=== PATIENT | female | born 1965 | race Caucasian/White ===

== ENCOUNTER 2017-02-14 02:54 | Inpatient (IN) ==
[2017-02-13 09:09] LABS: BASO% 1.1 % (0.0-0.8); EOS# 0.36 X1000 (0.0-0.7); HEMATOCRIT 41.8 % (37.0-47.0); HEMOGLOBIN 14.1 g/dL (12.0-16.0); IMM GRAN# 0.04 X1000 (0.0-0.04); IMM GRAN% 0.9 % (0.0-0.5); LYMPH# 1.14 X1000 (1.2-3.4); LYMPH% 25.2 % (20.5-51.1); MANUAL DIFF NEEDED? YES; MCH 30.8 PG (27-31); MCHC 33.7 g/dL (33-37); MCV 91.3 FL (81-99); MONO# 0.36 X1000 (0.11-0.59); MPV 11.5 FL (7.4-10.4); NEUT% 56.8 % (42.2-75.2); PLT 191 X1000 (130-400); RBC 4.58 XMIL (4.2-5.4)
[2017-02-13 09:16] LABS: INR 0.96; PTT 23.6 Seconds (22.0-36.0)
[2017-02-13 09:22] LABS: EOS 4 % (1-10); LYMPHS 31 % (21-51); MONO 6 % (1-9)
[2017-02-13 09:29] LABS: AGAP 11; ALBUMIN 4.1 g/dL (3.5-5.0); ALKALINE PHOSPHATASE 71 U/L (32-104); BUN 20 mg/dL (8-22); CALCIUM 9.7 mg/dL (8.8-10.2); CHLORIDE 102 mmol/L (98-107); COSMO 285; GOT 21 U/L (10-30); GPT 18 U/L (10-36); POTASSIUM 4.7 mmol/L (3.5-5.1); SODIUM 142 mmol/L (136-145); TCO2 29 mmol/L (25-35); TOTAL BILIRUBIN 0.33 mg/dL (0.20-1.00); TOTAL PROTEIN 6.7 g/dL (6.3-8.3)
--- NOTE | 2017-02-13 10:23 | EKG Report ---
Test Performed on : 02/13/2017 08:40:35 AM Test Reason : PAT Blood Pressure : / mmHG Vent. Rate : 060 BPM Atrial Rate : 060 BPM P-R Int : 172 ms QRS Dur : 084 ms QT Int : 388 ms P-R-T Axes : 049 -06 053 degrees QTc Int : 388 ms Normal sinus rhythm. Normal ECG No previous ECGs available Confirmed by Alex Garcia MD ([id number]) on 02/14/2017 4:16:35 PM
[2017-02-14] MEDS ORDERED: LEVAQUIN 500 MG/D5W 500 MG/100 ML IVPB ONE (08:59)
[2017-02-14] MEDS ORDERED: PEPCID ONE (08:59)
[2017-02-14] MEDS ORDERED: REGLAN ONE (08:59)
[2017-02-14] MEDS ORDERED: LR 1,000 ML ONE (09:00)
[2017-02-14] MEDS ORDERED: THROMBIN ONE (11:46)
[2017-02-14 12:08] LABS: URINE MICRO REVIEW NEEDED? NO; URINE SOURCE CATH
[2017-02-14 12:16] LABS: BILIRUBIN URINE NEGATIVE (NEGATIVE); BLOOD URINE NEGATIVE (NEGATIVE); COLOR YELLOW; GLUCOSE URINE NEGATIVE (NEGATIVE); LEUKOCYTES URINE NEGATIVE (NEGATIVE); NITRITE URINE NEGATIVE (NEGATIVE); PH URINE 6.5; PROTEIN URINE NEGATIVE (NEGATIVE); SP GRAVITY URINE 1.011; TURBIDITY URINE CLEAR (CLEAR); UR EPITHELIAL CELLS <10 /HPF (<10); URINE BACTERIA NEGATIVE /HPF; URINE RBC <10 /HPF (<10); URINE WBC <10 /HPF (<10); UROBILINOGEN URINE NORMAL (NORMAL)
[2017-02-14] MEDS ORDERED: DIPRIVAN 1% ONE (14:16)
[2017-02-14] MEDS ORDERED: FENTANYL ONE (14:16)
[2017-02-14] MEDS ORDERED: MORPHINE ONE ×2 (14:39→15:08)
[2017-02-14] MEDS ORDERED: ZOFRAN ONE (15:01)
[2017-02-14] MEDS ORDERED: QUELICIN (DOSE) ONE (15:01)
[2017-02-14] MEDS ORDERED: LR 4,000 ML ONE (15:01)
[2017-02-14] MEDS ORDERED: DECADRON ONE (15:01)
[2017-02-14] MEDS ORDERED: NEOSTIGMINE ONE (15:01)
[2017-02-14] MEDS ORDERED: MANNITOL ONE (15:01)
[2017-02-14] MEDS ORDERED: NORCURON ONE (15:01)
[2017-02-14] MEDS ORDERED: XYLOCAINE-MPF 2% ONE (15:01)
[2017-02-14] MEDS ORDERED: ROBINUL ONE (15:01)
[2017-02-14] MEDS ORDERED: NS 1,000 ML ONE (15:05)
[2017-02-14 15:24] LABS: HEMATOCRIT 31.5 % (37.0-47.0); HEMOGLOBIN 10.6 g/dL (12.0-16.0); MCH 30.5 PG (27-31); MCHC 33.7 g/dL (33-37); MCV 90.8 FL (81-99); RBC 3.47 XMIL (4.2-5.4)
[2017-02-14 15:48] LABS: AGAP 12; BUN 15 mg/dL (8-22); CALCIUM 8.3 mg/dL (8.8-10.2); CHLORIDE 101 mmol/L (98-107); COSMO 279; POTASSIUM 4.5 mmol/L (3.5-5.1); SODIUM 136 mmol/L (136-145); TCO2 23 mmol/L (25-35)
[2017-02-14] MEDS: NS 1,000 ML IV SCH ×2 (17:07→22:39)
[2017-02-14] MEDS: PERCOCET-5 PO PRN (19:39)
--- NOTE | 2017-02-14 20:40 | OPERATIVE NOTE ---
PROCEDURE DATE: 02/14/2017 IDENTIFYING INFORMATION: 51 years of age. PREOPERATIVE DIAGNOSIS: Right lower pole renal mass. 3.2 roughly x 3 cm on x-ray. Found to be around 3.2 x 4-5 cm cephalocaudal in dimension. POSTOPERATIVE DIAGNOSIS: 1. Right lower pole renal mass. 3.2 roughly x 3 cm on x-ray. Found to be around 3.2 x 4-5 cm cephalocaudal in dimension. 2. 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 PROCEDURE: Right partial nephrectomy converted to a right radical nephrectomy. SURGEON: Spencer Colon MD ASSISTANTS: OR staff. ANESTHESIA: General intubation. FINDINGS: As described in the body of the dictation. There were no complications. ESTIMATED BLOOD LOSS: 900 mL. SPECIMENS REMOVED: At 1st the lower 1/3 of the kidney to include a portion of the renal pelvis and then subsequently the remainder of the kidney. There were no drains. COURSE OF PROCEDURE: The patient was placed in the right flank position, with right side up. Prepped and draped per routine. Time-out procedure was performed demarcating the side and antibiotics were provided, which was Levaquin. With a marking pen, the tip of the 12th rib was marked and the trajectory of the incision was marked as well. Hash cruz were put in place. An incision was made, following the dorsum of the anterior surface of the 12th rib and carried through all layers. Bleeders were cauterized as encountered. Good hemostasis was noted. The intercostals and diaphragm were dissected from the 12th rib, starting at the tip and back to the costovertebral ligament, which was incised sharply with curved Metzenbaum scissors. In this fashion, the rib bed was entered allowing us to see and encounter Gerota's fascia. The excision was extended down to about 3 inches distal to the tip of the 12th rib. Once into the perirenal fat, a self-retaining Bookwalter retractor was put in place and retraction performed, periodically addressed throughout the case. Having done that, the Gerota's fascia was entered. Ureter was found and from the other structures with a vascular tape, attached to a hemostat. The mass in the distal kidney could be felt and the fatty tissues were dissected from around the margin of the proposed mass for resection. That was somewhat adherent lateral on the kidney. With palpation it was possible to determine that the mass extended up to the base of the renal pelvis causing some anxiety there that the renal pelvis would need at least resected in part. To go much further up would necessitate a nephrectomy. The renal artery was identified and was multiply segmental. There were 2 branches upper and 3 branches lower, and they probably did some of them join more towards the midline, but having said that, there was considerable length in this artery before any suspect union of these arteries certainly occurred, such that they could certainly be clamped or dressed. Having dissected the artery, the vein was left unaddressed. The renal capsule was scored circumferentially for resection of the mass. A pexing suture of 3-0 Vicryl was placed on the ventral renal pelvis to aarti where it would be resected, so just distal/caudal to that pexing suture which was left in place, an incision was made to resect a portion of the renal pelvis and blunt dissection transpired through the capsule as demarcated with electrocautery circumferentially around the mass to the level of the calyceal infundibulum. No mass was encountered anywhere in the area of proposed resection. The arteries to the most caudal portion of the kidney were clamped at least in part at this point, but some bleeding was noted consistent with the multi-segmental nature of the renal arteries to the lower pole of the kidney. These were addressed upon resection of the lower pole renal mass and were suture ligated for hemostasis. The renal pelvis and its lower half were closed with a running, continuous and occasionally interlocking 3-0 Vicryl to close the renal pelvis and the 2nd suture was placed in the bed of the resected tumor where a running occasionally interlocking suture was placed to obtain hemostasis. Reasonable hemostasis was this point obtained, and a surgical hemostatic foam was placed, wrapped in the hole to be tied into the wound for persistent hemostasis upon her departure from the OR. The specimen was delivered off the table and sent for pathologic exam and a frozen section was requested, intended mostly for the identification of the nature of the mass as removed, which was suspicious for tumor, either benign or malignant. At any rate, that deep bleeding tissue and the bed of the tumor as resected and were tied off with a whipstitch about that area to include any oozing or bleeding which was venous in character as the vein was not clamped, and the hemostatic gel roll which was placed in the wound was held in position and hemostatic paste was mixed and placed in the bed of the resected tumor with the gel roll to assist with hemostasis. Good hemostasis was at this point noted. The majority of bleeding was noted which caused difficulty with clamping all of the arteries without actually clamping the entire pedicle. Interrupted simple sutures were placed over this gel roll to fasten it tight within the fossa of the resected tumor. Good hemostasis noted at this point, no bleeding whatsoever. An inquiry was made as to status of the frozen section. The report came back that they could see tumor within the calyx, calices and possibly the renal pelvis. We are not sure, therefore, that did not extend to the surgical margin. In the absence of certainty, I did go down and look at this gross tumor. I did not look at the resected tumor which was stated to be clear cell. I did not look at that on the microscope. Pathology simply indicated that it was unclear in their mind that there was a complete resection. To that end, I did discuss that exactly as such with the family and advised that I did not think that if I undid that operation that I would be likely able to avoid more bleeding and that I did not think that I could cut any deeper without taking out the renal pedicle as we were right against the renal pedicle in removing segmental arteries and veins to the lower pole kidney at this point already. The family agreed and asked us to proceed with radical right nephrectomy for clear cell carcinoma of the kidney. To that end, all arteries were identified, they were doubly ligated proximally, clipped distally and incised over a right angle clamp with a long knife, each separately addressed and turned. Excellent hemostasis noted. Really not any additional bleeding was noted at this point. For the radical nephrectomy. Once the arteries are all ligated and the perinephric fat was freed from the vena cava, segmental veins x3 were encountered. One was more cephalad and was branched and one was more caudal and was completely separate. This was tied off twice medially and clipped twice distally on the kidney and cut over a right angle clamp. All 3 sections of that renal vein. The kidney was delivered except for the ureter, which was tied off with 0 silk suture, clipped with a metal clip distally and cut and the remaining 1/2 or 55% of the kidney was passed off the table as a separate specimen from the original partial nephrectomy, completing at this point a radical right nephrectomy. A drain had been placed in what was planned to be a closure at the time of receiving the frozen section. This drain was removed and Steri-Stripped. The wound was closed in layers with 0 Vicryl suture, starting with the transversus abdominis muscle and the bed of the 12th rib with the diaphragm and posterior serratus tissues over the rib as a 1st layer. The internal oblique was closed as a 2nd layer and the external oblique was closed as a final layer. Camper's and Lucinda's fascia were closed with a 2-0 Vicryl, running in nature and the skin hash cruz were realigned with 2-0 Vicryl and gin were applied to the incision successfully completing the procedure as described above. The patient did very well. Family was advised of the favorable outcome. She will be admitted to the floor and watched on the 5th floor of the hospital for convalescence until her discharge in the next 4 days or so. She did very well. cc: Spencer Colon DO
[2017-02-14] MEDS: MORPHINE IV PRN (21:25)
[2017-02-14] MEDS: PERIDEX MT SCH (21:27)
[2017-02-15] MEDS: PERCOCET-5 PO PRN ×6 (02:39→22:37)
[2017-02-15] MEDS: NS 1,000 ML IV SCH ×5 (05:22→22:10)
[2017-02-15 05:40] LABS: LYMPH% 4.2 % (20.5-51.1); MANUAL DIFF NEEDED? YES; MCH 30.7 PG (27-31); MCHC 33.3 g/dL (33-37); MONO# 0.72 X1000 (0.11-0.59); MONO% 7.5 % (1.7-9.3); MPV 11.5 FL (7.4-10.4); NEUT% 88.3 % (42.2-75.2); PLT 183 X1000 (130-400); RBC 3.26 XMIL (4.2-5.4)
[2017-02-15 05:59] LABS: BANDS 10 % (0-1); LYMPHS 4 % (21-51); MONO 8 % (1-9)
[2017-02-15 06:03] LABS: CALCIUM 8.6 mg/dL (8.8-10.2); POTASSIUM 4.8 mmol/L (3.5-5.1)
[2017-02-15] MEDS: PRILOSEC PO SCH (06:09)
[2017-02-15] MEDS: LOVENOX SUBQ SCH (10:16)
[2017-02-15] MEDS: CRESTOR PO SCH (10:16)
[2017-02-15] MEDS: VITAMIN B-12 PO SCH (10:16)
[2017-02-15] MEDS: PERIDEX MT SCH ×2 (10:16→21:59)
[2017-02-15] MEDS: LEVAQUIN 500 MG/D5W 500 MG/100 ML IVPB IV SCH (10:16)
[2017-02-15] MEDS: CARAFATE PO SCH (10:17)
[2017-02-15] MEDS: CELEXA PO SCH (10:17)
[2017-02-15] MEDS: HEMOCYTE PLUS CAPSULE PO SCH (10:17)
[2017-02-15] MEDS: SYNTHROID PO SCH (10:17)
[2017-02-15] MEDS: COLACE PO SCH (10:17)
[2017-02-15] MEDS ORDERED: NS 500 ML IV SCH (12:00)
[2017-02-16] MEDS: PRILOSEC PO SCH (06:01)
[2017-02-16] MEDS: NS 1,000 ML IV SCH ×2 (06:04→22:00)
[2017-02-16 06:17] LABS: MANUAL DIFF NEEDED? NO
[2017-02-16 06:24] LABS: BASO% 0.2 % (0.0-0.8); EOS# 0.07 X1000 (0.0-0.7); EOS% 1.3 % (0.0-10.0); HEMATOCRIT 25.4 % (37.0-47.0); HEMOGLOBIN 8.2 g/dL (12.0-16.0); LYMPH# 1.06 X1000 (1.2-3.4); MCH 30.7 PG (27-31); MCHC 32.3 g/dL (33-37); MCV 95.1 FL (81-99); MONO# 0.45 X1000 (0.11-0.59); MONO% 8.1 % (1.7-9.3); MPV 11.4 FL (7.4-10.4); NEUT% 71.4 % (42.2-75.2); PLT 141 X1000 (130-400); RBC 2.67 XMIL (4.2-5.4)
[2017-02-16 06:42] LABS: CALCIUM 8.6 mg/dL (8.8-10.2); POTASSIUM 4.5 mmol/L (3.5-5.1)
[2017-02-16] MEDS: PERCOCET-5 PO PRN ×2 (06:52→22:00)
[2017-02-16] MEDS: CARAFATE PO SCH (09:16)
[2017-02-16] MEDS: HEMOCYTE PLUS CAPSULE PO SCH (09:17)
[2017-02-16] MEDS: CELEXA PO SCH (09:17)
[2017-02-16] MEDS: CRESTOR PO SCH (09:17)
[2017-02-16] MEDS: VITAMIN B-12 PO SCH (09:17)
[2017-02-16] MEDS: PERIDEX MT SCH ×2 (09:17→21:56)
[2017-02-16] MEDS: LOVENOX SUBQ SCH (09:17)
[2017-02-16] MEDS: SYNTHROID PO SCH (09:17)
[2017-02-16] MEDS: COLACE PO SCH (09:17)
[2017-02-16] MEDS ORDERED: LASIX IV ONE (10:55)
[2017-02-16] MEDS: LEVAQUIN 500 MG/D5W 500 MG/100 ML IVPB IV SCH (11:18)
[2017-02-16] MEDS ORDERED: ZOFRAN IV PRN (11:34)
[2017-02-16] MEDS: DULCOLAX PO SCH (13:40)
--- NOTE | 2017-02-16 15:29 | CONSULTATION ---
DATE OF CONSULTATION: 02/16/2017 REASON FOR CONSULT: New diagnosis of clear cell carcinoma. HISTORY OF PRESENT ILLNESS: This patient is a 51-year-old female who came in for a right nephrectomy. She apparently has had some flank pain over the past 6 months that has been worsening. She went to her primary care's office, Dr. Carreon, and they sent her to the imaging center for a CT. We do not have that record, but it apparently showed a mass on the right kidney, so she was sent to Dr. Colon's office for surgery. The patient, on 2016, had a right partial nephrectomy converted to right radical nephrectomy. Final pathology is pending, but initial is showing clear cell carcinoma. The patient is doing well postoperatively. Denies any fevers chills, new lumps or bumps.Her initial hemoglobin prior to surgery was 14.1 and hematocrit was 41.8. Current hemoglobin is 8.2 and hematocrit is 25.4. FAMILY HISTORY: She does have a family history of kidney cancer in her father and her brother. PAST MEDICAL HISTORY: Patient has a history of gastric bypass surgery. REVIEW OF SYSTEMS: Negative unless indicated in HPI. ALLERGIES: Patient is allergic to NSAIDs and latex. HOME MEDICATIONS: Crestor and Celexa. PAST MEDICAL AND SOCIAL HISTORY: The patient has iron deficiency, status post gastric bypass surgery. She also has osteoporosis and she has hyperlipidemia. She has a family history of kidney cancer with her father and brother, and her paternal grandmother had breast cancer. She denies any alcohol, illicit drug, or tobacco usage. PHYSICAL EXAMINATION: Vital Signs: Stable. Constitutional: This is a female in no acute distress. HEENT: Head is normocephalic, atraumatic. Pupils equal, round , symmetric. Skin: Nephrectomy incision has a dressing that is clean and dry. No petechiae , ecchymosis, or rash. Cardiovascular: S1 and S2 audible to auscultation, with no heaves, lifts , thrills. Pulmonary: Breath sounds clear to auscultation, with normal respiratory effort. Abdomen: Soft, nondistended, nontender. Positive bowel sounds in all 4 quadrants. Musculoskeletal: Moves all extremities. No edema. Neurologic: Alert and orient x3. Psychiatric: Appropriate to the situation. DIAGNOSTIC DATA: The WBC is 5.57, hemoglobin 8.2, hematocrit 25.4, platelet count 141,000. Sodium was 140, potassium 4.5, BUN 15, and creatinine is 1.5. ASSESSMENT AND PLAN: 1. Clear cell carcinoma, status post right radical nephrectomy on 02/14/2017. Final pathology is pending. We will await final pathology and plan accordingly. 2. Normocytic anemia with a history of gastric bypass surgery. We will check iron indices and B12, and plan to replace as needed and transfuse on a p.r.n. basis. 3. Nutrition. Will add nutrition shakes t.i.d. 4. Deep vein thrombosis prophylaxis, on Lovenox. 5. Pain management. The patient is on oxycodone and morphine. Her pain is well controlled. Dictated by KIN Bolanos for Ancelmo Louise MD cc: KIN Bolanos MD [facility], [facility]
[2017-02-16] MEDS: MORPHINE IV PRN (15:35)
[2017-02-17] MEDS: PRILOSEC PO SCH ×2 (06:05→11:06)
[2017-02-17 06:20] LABS: IRON SATURATION 18 %; TIBC 176 ug/dL; TOTAL IRON 32 ug/dL (49-151); UNBOUND IRON 144 ug/dL (112-346)
[2017-02-17 06:34] LABS: FERRITIN 460 ng/mL (13-150)
[2017-02-17 06:36] LABS: CALCIUM 8.6 mg/dL (8.8-10.2)
[2017-02-17] MEDS: NS 1,000 ML IV SCH ×2 (07:31→15:02)
[2017-02-17 08:22] LABS: MANUAL DIFF NEEDED? NO
[2017-02-17 08:26] LABS: BASO% 0.4 % (0.0-0.8); EOS% 3.6 % (0.0-10.0); HEMATOCRIT 24.7 % (37.0-47.0); HEMOGLOBIN 8.3 g/dL (12.0-16.0); LYMPH# 1.01 X1000 (1.2-3.4); LYMPH% 18.4 % (20.5-51.1); MCH 31.4 PG (27-31); MCHC 33.6 g/dL (33-37); MCV 93.6 FL (81-99); MONO# 0.42 X1000 (0.11-0.59); MONO% 7.7 % (1.7-9.3); MPV 11.8 FL (7.4-10.4); NEUT% 69.9 % (42.2-75.2); PLT 147 X1000 (130-400); RBC 2.64 XMIL (4.2-5.4)
[2017-02-17] MEDS ORDERED: TYLENOL PO ONE (09:18)
[2017-02-17] MEDS ORDERED: BENADRYL IV ONE (09:18)
[2017-02-17] MEDS ORDERED: VENOFER 500 MG in NS 250 ML IV ONE (10:00)
[2017-02-17] MEDS: COLACE PO SCH (10:18)
[2017-02-17] MEDS: LOVENOX SUBQ SCH (10:18)
[2017-02-17] MEDS: HEMOCYTE PLUS CAPSULE PO SCH (10:18)
[2017-02-17] MEDS: VITAMIN B-12 PO SCH (10:18)
[2017-02-17] MEDS: DULCOLAX PO SCH (10:18)
[2017-02-17] MEDS: CRESTOR PO SCH (10:18)
[2017-02-17] MEDS: SYNTHROID PO SCH (10:18)
[2017-02-17] MEDS: PERIDEX MT SCH (10:18)
[2017-02-17] MEDS: CARAFATE PO SCH (10:18)
[2017-02-17] MEDS: CELEXA PO SCH (10:18)
[2017-02-17] MEDS ORDERED: LASIX IV ONE (10:40)
[2017-02-17] MEDS ORDERED: DULCOLAX PR ONE (10:41)
[2017-02-17] MEDS ORDERED: PEPCID PO SCH (10:45)
[2017-02-17 16:11] VITALS: BP 130/83
--- NOTE | 2017-02-17 18:38 | DISCHARGE SUMMARY ---
ADMISSION DATE: 02/14/2017 DISCHARGE DATE: 02/17/2017 HOSPITAL COURSE: She is 51 years of age. Had a partial nephrectomy followed by a radical nephrectomy. Given pathology's uncertainty of presence of a positive margin possibly on a clear cell carcinoma of 30-40% of the kidney removed being unable to salvage the remaining kidney and do further resection the decision was made to complete the procedure by the radical nephrectomy which was accomplished uneventfully. She did well, had some blood loss anemia, has ambulated 4 times a day yesterday but has decided to lay in bed today less anxious to mobilize, naturally she is sore postoperative but she needs to be placed in circumstance whereby she is required to ambulate so we will discharge her to home having no other reason to keep her and that she is taking orally and she is having bowel movements and is certainly able to mobilize more so than she has. She will need to go home on something to make certain she has elimination every day. We recommended an iron succinate or iron fumarate pill with vitamins twice daily. She will resume all her home medications. She will go home on Percocet 1 or 2 every 6 hours as needed pain and I have added Pepcid to her regimen 40 mg once a day and she was on Prilosec prior to the admission. So we look forward to seeing her on 02/26/2017 postop. IMPRESSIONS: Apparent clear cell carcinoma of the kidney involving a little better than 30 or 40% of the total kidney longer than wide on the specimen removed. DISCHARGE INSTRUCTIONS: She is to remain active and ambulatory, she can walk around the house and yard. She should not drive, squat or lift or do any heavy labor of any kind and I will see her on the 26 of February and get her gin out for her. We scheduled followup for the patient to see Dr. Ancelmo Louise who will manage her long-term cancer care and I look forward to seeing her in the office in followup. cc: Spencer Colon DO
[2017-02-18] MEDS ORDERED: PRILOSEC PO SCH (07:00)
== END 2017-02-17 17:57 | disposition home or self-care (01) ==
LOC: SURHOLD 02:54 → 4N 15:54
PROVIDERS: ADMIT Urology; ATTEND Urology
PROC: [UNRECOGNIZED PROCEDURE] (2017-02-14 09:56)